=== PATIENT | male | born 1975 | race Hispanic/Latino ===

== ENCOUNTER 2020-09-21 19:37 | Emergency (ER) | payer OTHER ==
[2020-09-21 19:50] LABS: BASOPHILS % (AUTO) 0.7 % (0.0-5.0); HEMATOCRIT 47.6 % (42-54); LYMPHOCYTES % (AUTO) 21.7 % (21.0-51.0); MEAN CORPUSCULAR HEMOGLOBIN 28.3 pg (27.0-33.0); MEAN CORPUSCULAR HGB CONC 34.5 g/dL (32.0-36.0); MEAN CORPUSCULAR VOLUME 82.1 fL (79-99); MONOCYTES % (AUTO) 6.1 % (3.0-13.0); NEUTROPHILS % (AUTO) 68.9 % (40.0-77.0); PLATELET COUNT (AUTO) 319 K/uL (130-400); RED CELL DISTRIBUTION WIDTH 13.8 % (11.0-15.5); WHITE BLOOD COUNT (AUTO) 11.8 K/uL (4.8-10.8)
[2020-09-21 20:02] LABS: PROTHROMBIN TIME 10.9 SEC (9.6-11.6)
[2020-09-21 20:04] LABS: PARTIAL THROMBOPLASTIN TIME 27.7 SEC (26.3-35.5)
[2020-09-21 20:10] LABS: CREATININE 1.2 mg/dL (0.5-1.5); POTASSIUM 3.9 mmol/L (3.5-5.1)
[2020-09-21 20:14] LABS: BILIRUBIN,TOTAL 0.8 mg/dL (0.2-1.0); TOTAL PROTEIN, SERUM 8.6 g/dL (6.0-8.3)
[2020-09-21] MEDS ORDERED: IOHEXOL 350 MG/ML 100ML INFUS..BTL IV ONE (20:19)
[2020-09-21 21:25] LABS: AMPHET/METH SCREEN,URINE NEGATIVE (NEGATIVE); BARBITURATE SCREEN, URINE NEGATIVE (NEGATIVE); BENZODIAZEPINES SCREEN,URINE NEGATIVE (NEGATIVE); CANNABINOID SCREEN,URINE POSITIVE (NEGATIVE); COCAINE SCREEN,URINE POSITIVE (NEGATIVE); OPIATE SCREEN,URINE NEGATIVE (NEGATIVE); PHENCYCLIDINE SCREEN,URINE NEGATIVE (NEGATIVE)
[2020-09-21] MEDS ORDERED: ASPIRIN 81MG TAB.CHEW ONE (22:23)
[2020-09-21] MEDS ORDERED: CLOPIDOGREL BISULFATE 300 MG TAB ONE (23:47)
[2020-09-21] MEDS ORDERED: ASPIRIN 325 MG TABLET ONE (23:48)
[2020-09-21] MEDS ORDERED: SODIUM CHLORIDE 0.9% 1000ML 1,000 ML IV ONE (23:48)
[2020-09-22] MEDS ORDERED: FUROSEMIDE 10 MG/ML 2ML VIAL ONE (00:11)
== END 2020-09-22 01:40 | disposition short-term general hospital (02) ==
LOC: EDH 19:37
DX: I63.9 Cerebral infarction, unspecified (principal); I65.21 Occlusion and stenosis of right carotid artery; F19.10 Other psychoactive substance abuse, uncomplicated; Z20.822 Contact with and (suspected) exposure to COVID-19
CPT/HCPCS: 36415; 70450; 70496; 70498; 71045; 80053; 80305; 82550; 82948; 83721; 84484; 85025; 85610; 85730; 87426; 93005; 99285; J1940; J7030; Q9967

== ENCOUNTER → 2024-06-20 | Outpatient (CLI) | payer MEDICAID ==
--- NOTE | 2024-06-20 13:19 | HMCIMG ---
US CAROTID DUPLEX REASON: CA STENOSIS TECHNIQUE: Exam was performed using spectral analysis and color flow imaging. FINDINGS: Color flow Doppler ultrasound shows normal-appearing right carotid bifurcation. There is a stent present in the left carotid bifurcation. There is no anatomic evidence of significant focal narrowing. Flow velocities and velocity ratios appear normal throughout. There is antegrade flow in both vertebral arteries. RIGHT CAROTID: CCA: 109 cm/sec ICA: 84 cm/sec Ratio: ICA/CCA: 0.7 ECA: 90 cm/sec Vertebral artery: 28 cm/sec LEFT CAROTID: CCA: 103 cm/sec ICA: 96 cm/sec Ratio: ICA/CCA: 0.9 ECA: 95 cm/sec Vertebral artery: 54 cm/sec IMPRESSION: 1. No evidence of carotid stenosis in either bifurcation. 2. Incidental note made of a stent present on the left, widely patent.
== END | disposition home or self-care (01) ==
LOC: RAH 10:06
PROVIDERS: ATTEND Internal Medicine
DX: I65.29 Occlusion and stenosis of unspecified carotid artery (principal)
CPT/HCPCS: 93880